=== PATIENT | female | born 1995 | race Caucasian/White ===

== ENCOUNTER 2019-11-15 10:43 | Emergency (ER) | payer OTHER ==
[~2019-11-15] VITALS: Ht 160 cm; Wt 47.2 kg
[2019-11-15] MEDS ORDERED: ENDOMETRIN100 MG (11:02)
[2019-11-15] MEDS ORDERED: PRENATAL + DHA1 EAC1 (11:03)
== END 2019-11-15 14:16 | disposition home or self-care (01) ==
LOC: ER 10:43
DX: O26.891 Other specified pregnancy related conditions, first trimester (principal); R10.2 Pelvic and perineal pain; O26.851 Spotting complicating pregnancy, first trimester; O36.80X1 Pregnancy with inconclusive fetal viability, fetus 1; Z3A.12 12 weeks gestation of pregnancy

== ENCOUNTER → 2020-01-09 | Outpatient (CLI) | payer OTHER ==
[~2020-01-09] MED LIST: ENDOMETRIN100 MG; PRENATAL + DHA1 EAC1
== END | disposition home or self-care (01) ==
LOC: PRENATAL 08:00
PROVIDERS: ATTEND Obstetrics & Gynecology Maternal & Fetal Medicine
DX: O35.0XX1 Maternal care for (suspected) central nervous system malformation in fetus, fetus 1 (principal); O35.3XX1 Maternal care for (suspected) damage to fetus from viral disease in mother, fetus 1; O98.512 Other viral diseases complicating pregnancy, second trimester; Z3A.20 20 weeks gestation of pregnancy

== ENCOUNTER 2020-05-13 12:30 | Inpatient (IN) | payer OTHER ==
[~2020-05-13] VITALS: Ht 160 cm; Wt 54.9 kg
[2020-05-23] MEDS ORDERED: CHILDREN'S ASPI81 MG PO (23:41)
== END 2020-05-26 09:15 | DRG 807 ==
LOC: LDR 05-24 09:26 → OB/GYN 05-24 09:26 → LDR 05-27 12:30
PROVIDERS: ADMIT Obstetrics & Gynecology; ATTEND Obstetrics & Gynecology
PROC: 10E0XZZ Delivery of Products of Conception, External Approach (ICD-10-PCS; principal; 2020-05-24)
PROC: 0KQM0ZZ Repair Perineum Muscle, Open Approach (ICD-10-PCS; 2020-05-24)
PROC: 4A1HXFZ Monitoring of Products of Conception, Cardiac Rhythm, External Approach (ICD-10-PCS; 2020-05-24)
DX: O70.1 Second degree perineal laceration during delivery (principal); Z37.0 Single live birth; O13.4 Gestational [pregnancy-induced] hypertension without significant proteinuria, complicating childbirth; Z3A.39 39 weeks gestation of pregnancy

== ENCOUNTER 2020-05-22 06:39 | Outpatient (CLI) | payer OTHER ==
[2020-05-23] MEDS ORDERED: CHILDREN'S ASPI81 MG PO (23:41)
== END 2020-05-22 13:27 | disposition home or self-care (01) ==
LOC: OBS/DEL 06:39
PROVIDERS: ATTEND Obstetrics & Gynecology
DX: O26.893 Other specified pregnancy related conditions, third trimester (principal); R10.2 Pelvic and perineal pain

== ENCOUNTER 2020-05-23 22:47 | Outpatient (CLI) | payer OTHER ==
[2020-05-23] MEDS ORDERED: CHILDREN'S ASPI81 MG PO (23:41)
== END 2020-05-24 09:58 | disposition still patient (30) ==
LOC: OBS/DEL 22:47
PROVIDERS: ATTEND Obstetrics & Gynecology
DX: O76 Abnormality in fetal heart rate and rhythm complicating labor and delivery (principal); Z20.828 Contact with and (suspected) exposure to other viral communicable diseases